=== PATIENT | male | born 1960 | race Caucasian/White ===

== ENCOUNTER 2019-09-06 12:12 | Outpatient (CLI) | payer OTHER | END 2019-09-06 12:23 | disposition home or self-care (01) | LOC: TOM 12:12 | DX: R10.84 Generalized abdominal pain (principal) ==

== ENCOUNTER → 2019-09-18 08:58 | Outpatient (CLI) | payer OTHER | END | disposition home or self-care (01) | LOC: RAD 08:58 | DX: N20.0 Calculus of kidney (principal) ==

== ENCOUNTER 2022-04-16 13:26 | Emergency (ER) | payer OTHER ==
[~2022-04-16] VITALS: Ht 182.9 cm; Wt 81.6 kg
[2022-04-16] MEDS ORDERED: TRULICITY0.75 MG/0. SQ (13:40)
[2022-04-16] MEDS ORDERED: VALSARTAN4 MG/1 ML PO (13:41)
== END 2022-04-16 17:18 | disposition designated cancer center or children's hospital (05) ==
LOC: ER 13:26
DX: S40.211A Abrasion of right shoulder, initial encounter (principal); S42.001A Fracture of unspecified part of right clavicle, initial encounter for closed fracture; V29.608A Unspecified rider of other motorcycle injured in collision with unspecified motor vehicles in traffic accident, initial encounter; Y93.9 Activity, unspecified; Y92.9 Unspecified place or not applicable

== ENCOUNTER 2022-06-26 22:29 | Emergency (ER) | payer OTHER ==
[~2022-06-26] VITALS: Ht 182.9 cm; Wt 79.8 kg
[~2022-06-26 22:29] MED LIST: TRULICITY0.75 MG/0. SQ; VALSARTAN4 MG/1 ML PO
[2022-06-26] MEDS ORDERED: METFORMIN HCL500 M4 PO (22:39)
== END 2022-06-26 23:36 | disposition home or self-care (01) ==
LOC: ER 22:29
DX: K29.70 Gastritis, unspecified, without bleeding (principal); M25.571 Pain in right ankle and joints of right foot